=== PATIENT | female | born 1995 | race Caucasian/White ===

== ENCOUNTER 2020-12-01 15:43 | Outpatient (CLI) | payer OTHER, SELFPAY ==
[2020-12-01 16:31] LABS: Basophils Percent Auto 0.5 % (0.2-1.2); Eosinophils Absolute Auto 0.1 K/mm3 (0-0.3); Eosinophils Percent Auto 0.8 % (0-4.4); Hematocrit 39.3 % (37.0-47.0); Hemoglobin 13.4 g/dL (12.0-15.0); Immature Granulocyte Absolute 0.02 K/mm3 (0.00-0.031); Immature Granulocyte Percent A 0.3 % (0-0.5); Lymphocytes Absolute Auto 2.03 K/mm3 (0.9-3.2); Lymphocytes Percent Auto 27.8 % (18.3-44.2); Mean Corpuscular HGB Conc 34.1 g/dl (32-36); Mean Corpuscular Hemoglobin 29.6 pg (26-34); Mean Corpuscular Volume 86.9 fl (80-100); Mean Platelet Volume 10.7 fl (7.4-10.4); Neutrophils Absolute Auto 4.2 K/mm3 (1.3-6.7); Neutrophils Percent Auto 57.6 % (45.5-73.1); Platelet Count Result 265 k/mm3 (150-375); Red Blood Count 4.52 M/mm3 (4.2-5.4); Red Cell Distribution Width 13.2 % (11.5-14.5); White Blood Count 7.3 K/mm3 (4.5-10.0)
[2020-12-01 17:35] LABS: Vitamin D 25 Hydroxy 34.8 ng/mL
[2020-12-01 17:54] LABS: Hepatitis B Surface Antigen Negative (Negative)
[2020-12-01 18:05] LABS: Hepatitis C Virus Antibody Negative (Negative)
[2020-12-01 18:16] LABS: Rubella IgG Antibody > 120.0 IU/ML
[2020-12-01 18:17] LABS: Hepatitis B Surface Antigen 0.13 S/C
[2020-12-02 10:01] LABS: Rapid Plasma Reagin Non-Reactive (NonReactive)
[2020-12-11 18:28] LABS: CF Result NEGATIVE (NEGATIVE)
== END 2020-12-01 15:44 | disposition home or self-care (01) ==
LOC: ANHLAB 15:45
PROVIDERS: PCP Family Medicine; Visit Provider Obstetrics & Gynecology
DX: Z34.90 Encounter for supervision of normal pregnancy, unspecified, unspecified trimester (principal)
CPT/HCPCS: 36415; 81220; 82306; 85025; 86592; 86762; 86787; 86803; 86850; 86900; 86901; 87340

== ENCOUNTER 2020-12-04 15:31 | Outpatient (CLI) | payer OTHER, SELFPAY ==
[2020-12-04 16:31] LABS: Add Urine Microscopic? YES; Amorphous Sediment Urine Few; Appearance Urine Cloudy (Clear); Bacteria Urine Trace /hpf; Bilirubin Urine Negative (Negative); Blood Urine Negative (Negative); Color Urine Yellow (Yellow); Glucose Urine UA Negative (Negative); Ketones Urine Negative (Negative); Leukocyte Esterase Ur Negative LEU/UL (NEGATIVE); Mucus Urine Heavy /lpf; Nitrate Urine Negative (Negative); Protein Urine 1+ mg/dL (Negative); Specific Grav Ur 1.021 (1.001-1.035); Squamous Epithelial Cell Urine Occasional /hpf (Few); Urobilinogen Urine Negative mg/dL (<2.0)
[2020-12-04 21:06] LABS: HIV 1/2 Ab P24 Ag Result Negative (Negative)
[2020-12-08 10:40] LABS: Hemoglobin 13.1 g/dL (11.7-15.5); MCH 29.4 pg (27.0-33.0); MCV 89.9 fL (80.0-100.0); RDW 14.4 % (11.0-15.0); Red Blood Cell Count 4.45 Mill/uL (3.80-5.10)
== END 2020-12-04 15:32 | disposition home or self-care (01) ==
LOC: ANHLAB 15:34
PROVIDERS: PCP Family Medicine; Visit Provider Obstetrics & Gynecology
DX: Z34.90 Encounter for supervision of normal pregnancy, unspecified, unspecified trimester (principal)
CPT/HCPCS: 36415; 81001; 83021; 84443; 86703; 87086; G0432

== ENCOUNTER 2021-01-28 11:54 | Emergency (ER) | payer OTHER, SELFPAY ==
--- NOTE | 2021-01-28 12:00 | ED.URI ---
HPI - URI/Sore Throat General Chief Complaint: Upper Respiratory Infection Stated Complaint: sore throat Time Seen by Provider: 01/28/21 12:00 Source: patient and RN notes reviewed History of Present Illness HPI Narrative: Patient is a 25-year-old female who presents the urgent care with complaints of a sore throat at this morning. Patient has not taken anything [id number] for her symptoms. Patient is 18 weeks . States that her was positive for strep on January 23. Patient also works at the hospital. Denies of any nausea, vomiting, fever. No other acute complaints. No acute distress noted. Patient aware of the plan of care. Some parts of this dictation were generated by voice recognition software and may contain typographical and/or grammatical inaccuracies. Related Data Home Medications Medication Instructions Recorded Confirmed prenat.vits,farzad,[id number] 1 tablet PO DAILY 11/24/20 01/28/21 Allergies Allergy/AdvReac Type Severity Reaction Status Date / Time No Known Allergies Allergy Verified 12/31/20 15:07 Review of Systems Review of Systems: CONSTITUTIONAL: Denies fever, chills, or sweats. EYES: Denies visual changes, redness, or discharge. ENT: Denies rhinorrhea, congestion, otalgia. Reports of sore throat CARDIOVASCULAR: Denies chest pain, palpitations, or edema. RESPIRATORY: Denies cough or dyspnea. GASTROINTESTINAL: Denies abdominal pain, nausea, vomiting, or diarrhea. GENITOURINARY: Denies dysuria or hematuria. SKIN: Denies rash or itching. MUSCULOSKELETAL: Denies back pain, joint pain, or myalgia. NEUROLOGIC: Denies headache, numbness, or weakness. All other systems reviewed are negative, except as documented in HPI. [facility] Past Medical History Medical History (Updated 01/28/21 @ 12:30 by YUDI Bowles) Acid reflux Family History Family History Father Hypertension Family history of elevated blood lipids Mother Depression Social History Social History Smoking status: Never smoker Second hand tobacco smoke exposure: No Alcohol intake: never Comments At the time of my signature, I reviewed and agree with the nursing past medical, surgical, social, and family history. There is no relevant family history pertinent to the patient complaint. Exam Narrative: GENERAL: This is a well-nourished, well-developed patient, in no apparent distress. HEAD: normocephalic, atraumatic. EYES: PERRL. Sclera clear/white. Vision is grossly intact. EARS: External ears normal, auditory canals clear and without drainage, TMs normal without perforation. Hearing grossly intact. NOSE: External nose normal with no obvious nasal discharge, nares without redness, no rhinorrhea. THROAT: Mucous membranes moist, posterior pharynx clear. Mild postnasal drainage with exudate noted to the right NECK: Neck supple CARDIOVASCULAR: Regular rate and rhythm without murmurs, gallops, or rubs. RESPIRATORY: Clear to auscultation. Breath sounds equal bilaterally. No wheezes, rales, or rhonchi. SKIN: warm, intact with no suspicious lesions or rash, good texture and turgor. NEURO: awake, alert, and oriented to person, place and time. There were no obvious focal neurologic abnormalities. EXTREMITIES: No clubbing, cyanosis, or edema. Course Vital Signs Vital signs: Vital Signs Temperature 98.8 F 01/28/21 12:05 Pulse Rate 86 01/28/21 12:05 Respiratory Rate 16 01/28/21 12:05 Blood Pressure 122/74 01/28/21 12:05 Pulse Oximetry 100 01/28/21 12:05 Temperature 98.8 F 01/28/21 12:05 Pulse Rate 86 01/28/21 12:05 Respiratory Rate 16 01/28/21 12:05 Blood Pressure 122/74 01/28/21 12:05 Pulse Oximetry 100 01/28/21 12:05 Reviewed MDM - URI/Sore Throat MDM Narrative Medical decision making narrative: Reviewed lab results with the patient. She is aware
[2021-01-28 12:05] VITALS: BP 122/74; PULSE 86; RESP 16; TEMP 37.1; O2SAT 100
== END 2021-01-28 12:34 | disposition home or self-care (01) ==
PROVIDERS: Emergency Provider Nurse Practitioner Family; PCP Family Medicine
DX: J02.9 Acute pharyngitis, unspecified (principal)
CPT/HCPCS: 87081; 87880; 99213; G0463

== ENCOUNTER 2021-02-17 12:26 | Outpatient (CLI) | payer OTHER, SELFPAY ==
--- NOTE | ~2021-02-17 | US_ITS ---
EXAMINATION: US OB /maternal detail DATE: 02/17/2021 13:45 INDICATION: Encounter for survey screening TECHNIQUE: Multiple obstetric sonographic images performed. FINDINGS: Comparison ultrasound dated 12/01/2020 There is a single living fetus in breech presentation. The placenta is posterior without placenta pr evia. Amniotic fluid volume is subjectively normal. cardiac activity and movement is note d with a heart rate of 169 beats per minute. The following anatomy was identified as normal: 4 chamber heart 3 vessel cord cord insertion kidneys urinary bladder stomach spine diaphragm ventricles cisterna magna cerebellum The following biometric data were obtained: BPD: 46mm corresponds to gestational age 19 weeks 6 days. Head circumference: 172 mm corresponds to gestational age 19 weeks 6 days. Abdominal circumference: 147 mm corresponds to gestational age 20 weeks 0 days. Femur length: 31 mm corresponds to gestational age 19 weeks 4 days. Head circumference to abdominal circumference ratio: 1.17 (normal range for expected gestational age is 1.08-1.26). Estimated weight: 312 grams +/- 47 grams using Hadlock method, 6.1%. IMPRESSION: 1: Single living intrauterine with an estimated gestational age of 20weeks 3days by initial ultrasound measurements, with an EDC of 07/04/2021 in breech presentation. Estimated weight is 6.1% using Hadlock method. 2. Normal survey. Reviewed, dictated and finalized at location A. FLEET MAINTENANCE MANAGER IMPRESSION: 1: Single living intrauterine with an estimated gestational age of 20 weeks 3days by initial ultrasound measurements, with an EDC of 07/04/2021 in sharon ech presentation. Estimated weight is 6.1% using Hadlock method. 2. Normal survey.
== END 2021-02-17 12:27 | disposition home or self-care (01) ==
LOC: ANHIMG 12:30
PROVIDERS: PCP Family Medicine; Visit Provider Obstetrics & Gynecology
DX: Z34.92 Encounter for supervision of normal pregnancy, unspecified, second trimester (principal); Z3A.20 20 weeks gestation of pregnancy
CPT/HCPCS: 76805

== ENCOUNTER 2021-04-06 12:24 | Outpatient (RCR) | payer OTHER, SELFPAY ==
[2021-04-06 14:21] LABS: Basophils Percent Auto 0.4 % (0.2-1.2); Eosinophils Absolute Auto 0.1 K/mm3 (0-0.3); Eosinophils Percent Auto 1.6 % (0-4.4); Hematocrit 32.7 % (37.0-47.0); Hemoglobin 11.1 g/dL (12.0-15.0); Immature Granulocyte Absolute 0.08 K/mm3 (0.00-0.031); Lymphocytes Absolute Auto 1.87 K/mm3 (0.9-3.2); Lymphocytes Percent Auto 23.1 % (18.3-44.2); Mean Corpuscular HGB Conc 33.9 g/dl (32-36); Mean Corpuscular Hemoglobin 30.1 pg (26-34); Mean Corpuscular Volume 88.6 fl (80-100); Mean Platelet Volume 10.6 fl (7.4-10.4); Monocytes Absolute Auto 0.9 K/mm3 (0.1-0.6); Monocytes Percent Auto 10.6 % (2.6-8.5); Neutrophils Absolute Auto 5.1 K/mm3 (1.3-6.7); Neutrophils Percent Auto 63.3 % (45.5-73.1); Platelet Count Result 237 k/mm3 (150-375); Red Blood Count 3.69 M/mm3 (4.2-5.4); Red Cell Distribution Width 12.8 % (11.5-14.5); White Blood Count 8.1 K/mm3 (4.5-10.0)
[2021-04-06 14:27] LABS: Glucose 1 Hour PP 50gm Dose 97 mg/dL
[2021-04-07] MEDS: RHO(D) IMMUNE GLOBULIN 300 MCG/2 ML SYRINGE IM (15:05)
== END 2021-07-05 23:59 | disposition home or self-care (01) ==
LOC: ANHLAB 12:24
PROVIDERS: PCP Family Medicine; Visit Provider Obstetrics & Gynecology
DX: Z34.90 Encounter for supervision of normal pregnancy, unspecified, unspecified trimester (principal); Z29.13 Encounter for prophylactic Rho(D) immune globulin; Z3A.00 Weeks of gestation of pregnancy not specified
CPT/HCPCS: 36415; 82947; 85025; 85461; 90384; 96372; J2790

== ENCOUNTER 2021-04-21 12:18 | Outpatient (RCR) | payer OTHER, SELFPAY ==
--- NOTE | ~2021-04-21 | US_ITS ---
EXAMINATION: US OB limited DATE: 04/21/2021 13:46 INDICATION: Pericardial effusion. TECHNIQUE: Real-time ultrasound of the pelvis was performed. COMPARISON: Ultrasound 02/17/2021 FINDINGS: There is a single fetus in vertex presentation. The placenta is fundal. heart rate is 136 beat s per minute (bpm). The amniotic fluid index is 15.4 cm, which is normal. The four-chamber heart view is normal. No pericardial effusion. IMPRESSION: 1. Single living fetus in vertex presentation. 2. No pericardial effusion. Reviewed, dictated and finalized at location A. [employer]TER
[2021-04-21 14:20] LABS: Free T4 Free Thyroxine 0.86 ng/mL (0.78-2.19)
[2021-04-27 12:01] LABS: SS-A <1.0; SS-B <1.0
== END 2021-07-13 08:51 | disposition home or self-care (01) ==
LOC: ANHOBOP 12:18
PROVIDERS: PCP Family Medicine; Visit Provider Obstetrics & Gynecology
DX: O36.8390 Maternal care for abnormalities of the fetal heart rate or rhythm, unspecified trimester, not applicable or unspecified (principal); Z3A.00 Weeks of gestation of pregnancy not specified
CPT/HCPCS: 36415; 76815; 84439; 84443; 86038; 86235

== ENCOUNTER 2021-05-18 08:53 | Outpatient (CLI) | payer OTHER, SELFPAY ==
[2021-05-18 10:01] LABS: HIV 1/2 Ab P24 Ag Result Negative (Negative)
[2021-05-18 13:45] LABS: Basophils Percent Auto 0.4 % (0.2-1.2); Eosinophils Absolute Auto 0.1 K/mm3 (0-0.3); Eosinophils Percent Auto 1.6 % (0-4.4); Hemoglobin 9.7 g/dL (12.0-15.0); Immature Granulocyte Absolute 0.09 K/mm3 (0.00-0.031); Immature Granulocyte Percent A 1.2 % (0-0.5); Lymphocytes Absolute Auto 1.87 K/mm3 (0.9-3.2); Lymphocytes Percent Auto 24.3 % (18.3-44.2); Mean Corpuscular HGB Conc 31.3 g/dl (32-36); Mean Corpuscular Hemoglobin 28.4 pg (26-34); Mean Corpuscular Volume 90.6 fl (80-100); Mean Platelet Volume 11.1 fl (7.4-10.4); Monocytes Absolute Auto 0.9 K/mm3 (0.1-0.6); Monocytes Percent Auto 12.1 % (2.6-8.5); Neutrophils Absolute Auto 4.7 K/mm3 (1.3-6.7); Neutrophils Percent Auto 60.4 % (45.5-73.1); Platelet Count Result 253 k/mm3 (150-375); Red Blood Count 3.42 M/mm3 (4.2-5.4); Red Cell Distribution Width 12.6 % (11.5-14.5); White Blood Count 7.7 K/mm3 (4.5-10.0)
[2021-05-19 08:52] LABS: Rapid Plasma Reagin Non-Reactive (NonReactive)
== END 2021-05-18 08:54 | disposition home or self-care (01) ==
PROVIDERS: PCP Family Medicine; Visit Provider Student in an Organized Health Care Education/Training Program
DX: Z36.89 Encounter for other specified antenatal screening (principal); Z3A.32 32 weeks gestation of pregnancy
CPT/HCPCS: 36415; 85025; 86592; 86703; G0432

== ENCOUNTER 2021-07-06 15:53 | Inpatient (IN) | payer OTHER, SELFPAY ==
[2021-07-06] VITALS (38 sets, daily range): BP systolic 104–138; BP diastolic 57–96; PULSE 67–104; TEMP 36.1–36.2; O2SAT 98–100; BMI 30.4
--- NOTE | 2021-07-06 16:47 | LDADM ---
This patient, Lyn Tejada, was admitted to Labor/Delivery/Recovery 109 on 07/06/21 at 15:53. Plans for labor, pain management and were discussed with patient. Patient/family oriented to hospital policies and general routines including ID bracelet, bed and alarms, visiting hours, pain management, procedures, bathroom and other care routines, personal items, smoking policy, room service/diet and guest tray routines, infant security routines, and visiting hours. Patient/Family are encouraged to report perceived risks to care and to ask questions if they do not understand what they are told or what they should do. See OBIX for further documentation.
[2021-07-06 17:07] LABS: Basophils Absolute Auto 0.1 K/mm3 (0.0-0.1); Basophils Percent Auto 0.5 % (0.2-1.2); Eosinophils Absolute Auto 0.1 K/mm3 (0-0.3); Eosinophils Percent Auto 1.3 % (0-4.4); Hematocrit 36.5 % (37.0-47.0); Immature Granulocyte Absolute 0.14 K/mm3 (0.00-0.031); Immature Granulocyte Percent A 1.5 % (0-0.5); Lymphocytes Absolute Auto 2.46 K/mm3 (0.9-3.2); Lymphocytes Percent Auto 26.3 % (18.3-44.2); Mean Corpuscular HGB Conc 32.9 g/dl (32-36); Mean Corpuscular Volume 88.2 fl (80-100); Mean Platelet Volume 11.9 fl (7.4-10.4); Monocytes Absolute Auto 0.8 K/mm3 (0.1-0.6); Neutrophils Absolute Auto 5.7 K/mm3 (1.3-6.7); Neutrophils Percent Auto 61.4 % (45.5-73.1); Platelet Count Result 255 k/mm3 (150-375); Red Blood Count 4.14 M/mm3 (4.2-5.4); Red Cell Distribution Width 16.2 % (11.5-14.5); White Blood Count 9.3 K/mm3 (4.5-10.0)
[2021-07-06] MEDS: DINOPROSTONE 10 MG VAG INSERT VAGINAL (17:23)
--- NOTE | 2021-07-06 17:47 | WPDANESEPP ---
Anes - Eval Pre Procedure Procedure: labor epidural Date/Time: 07/06/21 17:47 Surgeon: adelfo Preop Diagnosis: pain during labor Pre Op Diagnosis: IOL Patient Data Age: 25 Gender: F Height: 1.6 m Weight: 78 kg Last Vital Signs Pulse 93 07/06/21 17:30 BP 128/74 07/06/21 17:30 Allergies Allergy/AdvReac Type Severity Reaction Status Date / Time No Known Allergies Allergy Verified 07/06/21 16:34 Home Medications Medication Instructions Recorded Confirmed Type prenat.vits,farzad,[id number] 1 tablet PO DAILY 11/24/20 07/06/21 History ferrous sulfate 325 mg (65 mg 325 mg PO DAILY #90 tablet 05/19/21 07/06/21 Rx iron) tablet Unisom (diphenhydramine) 12.5 mg PO DAILY 07/06/21 07/06/21 History Laboratory Tests 07/06/21 07/06/21 16:55 16:55 WBC 9.3 K/mm3 K/mm3 (4.5-10.0) RBC 4.14 M/mm3 L M/mm3 (4.2-5.4) Hgb 12.0 g/dL g/dL (12.0-15.0) Hct 36.5 % L % (37.0-47.0) MCV 88.2 fl fl (80-100) MCH 29.0 pg pg (26-34) MCHC 32.9 g/dl g/dl (32-36) RDW 16.2 % H % (11.5-14.5) Plt Count 255 k/mm3 k/mm3 (150-375) MPV 11.9 fl H fl (7.4-10.4) Immature Gran % (Auto) 1.5 % H % (0-0.5) Neut % (Auto) 61.4 % % (45.5-73.1) Lymph % (Auto) 26.3 % % (18.3-44.2) [place] % (Auto) 9.0 % H % (2.6-8.5) Eos % (Auto) 1.3 % % (0-4.4) Baso % (Auto) 0.5 % % (0.2-1.2) Lymph # (Auto) 2.46 K/mm3 K/mm3 (0.9-3.2) [place] # (Auto) 0.8 K/mm3 H K/mm3 (0.1-0.6) Eos # (Auto) 0.1 K/mm3 K/mm3 (0-0.3) Baso # (Auto) 0.1 K/mm3 K/mm3 (0.0-0.1) Abs Immat Gran (auto) 0.14 K/mm3 H K/mm3 (0.00-0.031) Absolute Neuts (auto) 5.7 K/mm3 K/mm3 (1.3-6.7) Absolute Nucleated RBC 0.0 K/mm3 K/mm3 (0.0-0.012) Nucleated RBC % 0.0 % % (0.0-0.2) RPR Pending Patient hx anesthesia problems: none Family hx anesthesia problems: none Results Review: All pre-operative results and documents have been reviewed as part of the pre-operative evaluation. [facility] Past Medical History Medical History Acid reflux Family History Family History Father Family history of elevated blood lipids Hypertension Mother Depression Hypertension Social History Social History Smoking status: Never smoker Second hand tobacco smoke exposure: No Alcohol intake: never Substance use: never Spiritual care concerns: No Exam Day of Procedure 07/06/21 17:47
[2021-07-06] MEDS: fentaNYL CITRATE INJ (*CRX) 100 MCG/2 ML VIAL 50 MCG IV PUSH ×2 (20:37→21:38)
[2021-07-06] MEDS: ONDANSETRON INJ 4 MG/2 ML VIAL IV PUSH (22:02)
[2021-07-06] MEDS: LACTATED RINGERS 1,000 ML 125 ML IV CONT ×2 (22:04→23:32)
[2021-07-07] VITALS (95 sets, daily range): BP systolic 94–143; BP diastolic 52–103; PULSE 69–195; RESP 16–18; TEMP 36.3–37; O2SAT 97–100
[2021-07-07] MEDS: OXYTOCIN 30 UNITS/NS 500 ML 30 UNITS/500 ML BAG IV CONT (00:25)
[2021-07-07] MEDS: CALCIUM CARBONATE (TUMS) 500 MG (200 MG ELEMENTAL) PO (00:31)
[2021-07-07] MEDS: LACTATED RINGERS 1,000 ML 125 ML IV CONT (02:02)
[2021-07-07] MEDS: LIDOCAINE HCL 1% LOCAL INJ 10 ML VIAL 20 ML (05:30)
[2021-07-07] MEDS: OXYTOCIN 30 UNITS/NS 500 ML 30 UNITS/500 ML BAG 125 UNITS IV CONT (05:52)
[2021-07-07 07:32] LABS: Rapid Plasma Reagin Non-Reactive (NonReactive)
[2021-07-07] MEDS: WITCH HAZEL 40 PADS 1 PAD TOPICAL (07:56)
[2021-07-07] MEDS: IBUPROFEN 600 MG TABLET PO ×2 (07:56→16:02)
[2021-07-07] MEDS: BENZOCAINE 20% AER SPR (*SP) 56 GM CAN 1 SPRAY TOPICAL (07:56)
--- NOTE | 2021-07-07 08:39 | PM.IMHP ---
H&P: HPI History of Present Illness Date/Time: 07/07/21 08:39 Patient admitted for [facility] for post dates. She is at 40 5/7 weeks by LMP 09/24/21 with an EDC of 07/01/2021 consistent with a 9 week ultrasound. PNC significant for episode of arrhythmia which was present for about six weeks. She had neg antiRo antiLa testing. She had MFM consultation and had normal surveillance testing. The tracing showed an occasional PAC. No pericardial effusion observed. Labs reviewed. GBS neg. Chief Complaint: Medical induction of labor. Review of Systems Review of Systems: All systems reviewed & are unremarkable except as noted in HPI and below Constitutional: Constitutional: Reports no additional constitutional complaints and Denies headache(s) Eyes: Eyes: Denies spots in vision ENT: Reports system reviewed and no additional complaints, except as documented and Denies headache(s) Cardiovascular: Cardiovascular: Denies chest pain and Denies dyspnea Respiratory: Respiratory: Denies dyspnea Gastrointestinal: Gastrointestinal: Reports no additional gastrointestinal complaints Genitourinary: Genitourinary: Reports amenorrhea Musculoskeletal: Musculoskeletal: Reports no additional musculoskeletal complaints Integumentary/Breasts: Skin/Breast: Denies breast mass and Denies rash Neurologic: Denies headache(s) Psychiatric: Psychiatric: Reports no additional psychiatric complaints [facility] Past Medical History Medical History (Updated 07/07/21 @ 21:19 by Clayton Wilkinson MD) Acid reflux Family History Family History Father Family history of elevated blood lipids Hypertension Mother Depression Hypertension Social History Social History Smoking status: Never smoker Second hand tobacco smoke exposure: No Alcohol intake: never Substance use: never Spiritual care concerns: No Meds Home Medications and Allergies Home Medications Medication Instructions Recorded Confirmed Type prenat.vits,farzad,[id number] 1 tablet PO DAILY 11/24/20 07/06/21 History ferrous sulfate 325 mg (65 mg 325 mg PO DAILY #90 tablet 05/19/21 07/06/21 Rx iron) tablet Unisom (diphenhydramine) 12.5 mg PO DAILY 07/06/21 07/06/21 History Allergies Allergy/AdvReac Type Severity Reaction Status Date / Time No Known Allergies Allergy Verified 07/06/21 16:34 Vital Signs Vital Signs - 24 hr 07/06/21 16:28 07/06/21 17:26 07/06/21 17:30 Temperature 97.1 F L Pulse Rate 96 93 Blood Pressure 126/76 128/74 Pulse Oximetry 07/06/21 18:00 07/06/21 18:30 07/06/21 19:00 Temperature Pulse Rate 86 81 77 Blood Pressure 133/78 134/78 134/84 Pulse Oximetry 07/06/21 20:00 07/06/21 20:30 07/06/21 21:00 Temperature Pulse Rate 92 87 78 Blood Pressure 126/79 132/66 104/57 L Pulse Oximetry 07/06/21 21:30 07/06/21 22:00 07/06/21 22:30 Temperature Pulse Rate 92 82 77 Blood Pressure 119/70 119/65 138/75 Pulse Oximetry 07/06/21 22:36 07/06/21 22:39 07/06/21 22:40 Temperature Pulse Rate 93 93 Blood Pressure 119/96 H 115/71 Pulse Oximetry 99 07/06/21 22:41 07/06/21 22:42 07/06/21 22:44 Temperature Pulse Rate 88 84 Blood Pressure 120/68 118/69 Pulse Oximetry 100 07/06/21 22:45 07/06/21 22:46 07/06/21 22:48 Temperature Pulse Rate 90 73 Blood Pressure 114/64 135/62 Pulse Oximetry 100 07/06/21 22:50 07/06/21 22:52 07/06/21 22:55 Temperature Pulse Rate 103 H 101 H Blood Pressure 126/74 126/71 Pulse Oximetry 100 100 07/06/21 22:57 07/06/21 23:00 07/06/21 23:05 Temperature Pulse Rate 84 77 Blood Pressure 132/70 127/74 Pulse Oximetry 100 100 07/06/21 23:10 07/06/21 23:15 07/06/21 23:18 Temperature 97 F L Pulse Rate 67 Blood Pressure 130/76 Pulse Oximetry 99 99 07/06/21 23:20 07/06/21 23:25 07/06/21
--- NOTE | 2021-07-07 08:40 | PM.OBPRVD ---
OB - Delivery Note Procedure Delivery date: 07/07/21 Procedure: Spontaneous vaginal delivery. Events: Other (Episodic arrhythmia.) Induction method: Per Misoprostol Protocol Delivery augmentation: Pitocin Delivery monitor: External FHT Route of delivery: Laceration Description: Perineal - 2nd Degree and Vaginal (Bilateral sulcus vaginal tears) Delivery repair: vicryl (3.0 vicryl) Specimen: No Quantitative Blood Loss (ml): 400 Anesthesia type: Epidural Disposition: Floor Complications: Mild shoulder dystocia lasting 36 seconds. Narrative: Patient admitted on the evening of 07/24/2021 for medical induction of labor for postdates with cervidil. She started tremayne and progressed into active labor. The cervidil was removed after two hours due to her progressing into active labor. She continued to progress into active labor. She had SROM clear. She progressed to 9 cm and then needed augmentation. After delivery of the head, she had a laceration. Gentle downward traction of head performed and the anterior shoulder did not move under the pubic bone. The legs were placed in modified McRobert's and suprapubic pressure applied and the anterior shoulder was delivered. Nose and mouth suctioned with bulb. The rest of infant delivered and placed on maternal abdomen and the cord was doubly clamped and cut. Terminal meconium noted. The was taken to warmer by nursery nurse. Cord gases and cord blood obtained. The placenta delivered spontaneously and intact. The laceration was examined. The bilateral vaginal sulci tears were repaired with 3.0 vicryl. The second degree perinneal laceration repaired with 3.0 vicryl in figure of eight and running suture. The superfiscial layer approximated with single sutures of 3.0 vicryl. Hemostasis noted. Sponge count correct. Baby Date of : 07/07/21 Time of : 05:17 Weeks of gestation at delivery: 40 Infant gender: Male Weight (pounds): 8 Weight (ounces): 0 presentation: vertex position: Right Occiput Anterior Placenta delivery description: Spontaneous Cord Vessel Description: 3 Vessels and Clamped/Cut score one minute: 8 score five minutes: 9
--- NOTE | 2021-07-07 09:18 | OBPPTRN ---
Patient transferred to post room # 287 via wheelchair. Support person present. Oriented to unit, room, information board, rooming in, admission packet and security measures. Patient verbalizes understanding.
[2021-07-07] MEDS: DOCUSATE SODIUM 100 MG CAPSULE PO ×2 (11:18→16:02)
[2021-07-07] MEDS: ACETAMINOPHEN 325 MG TABLET 650 MG PO ×2 (11:18→22:19)
--- NOTE | 2021-07-07 15:22 | PC.NURSE ---
0945 - Introductions were made, then consulted with patient to assess needs related to . Mother led the conversation with her experience feeding her infant so far. Mother works well with her with encouragement and education. Encouraged understanding of the benefits of skin to skin (unwrapping infant and placing vertically on her chest), responsive feeding and how to watch for early feeding signs, frequency of feeding on demand about every 8-12 times in 24 hours (every 2-3 hours), milk production, duration of feeding, signs of adequate intake/output and how to record on the feeding sheet. 1000 - Mother hand expressed colostrum and finger fed to a sleepy/ reluctant infant. 1020 - With an unconventional laid-back cross cradle position infant self attached with effective . Education given to mother of how to visualize suck/swallow ratios and drinking at the breast. Infant was able to maintain latch without discomfort to mother. Nipple care reviewed with optimal latch and good positioning. Reminding mother of comfort measures of healing with a warm and wet washcloth to rinse breast, then leave open to air-dry as needed. Reviewed good handwashing when or touching the breast/nipples to prevent infection. Resources used to facilitate learning were used with the mom and baby guide. Mother voiced understanding of responsive feedings, stimulating with skin to skin, hand expressed colostrum, touch, talking to infant to encourage if it has been 2 -3 hours since the start of the last , to call if does not latch or there is discomfort with . Reported to the primary RN.
[2021-07-08] MEDS: IBUPROFEN 600 MG TABLET PO ×3 (00:52→22:21)
[2021-07-08] MEDS: ACETAMINOPHEN 325 MG TABLET 650 MG PO (05:05)
[2021-07-08 05:53] LABS: Hemoglobin 7.4 g/dL (12.0-15.0)
[2021-07-08 08:55] VITALS: BP 125/78; PULSE 89; RESP 18; TEMP 36.6; O2SAT 100
[2021-07-08] MEDS: POLYSACCHARIDE IRON COMPLEX 150 MG CAPSULE PO ×2 (09:39→17:21)
[2021-07-08] MEDS: DOCUSATE SODIUM 100 MG CAPSULE PO ×2 (09:39→17:21)
[2021-07-08] MEDS: HYDROcodone/acetaminophen (*CRX) 5-325 MG TABLET 1 TAB (09:40)
[2021-07-08] MEDS: MULTIVIT/MIN/PREN/FOL AC/IRON TABLET 1 TAB PO (09:42)
[2021-07-08] MEDS: RHO(D) IMMUNE GLOBULIN 300 MCG/2 ML SYRINGE IM (10:55)
--- NOTE | 2021-07-08 12:50 | WPDANLDPN2 ---
Anes-Prog Note L&D Date/Time: 07/08/21 12:50 Comfortable throughout: labor and delivery Neuraxial method: epidural Epidural/Spinal procedure site: clean & non-tender Neuro status: Neuro function grossly intact. Cardiovascular status: normal Respiratory status: normal Airway patency: baseline Mental status: baseline Post-Op hydration status: normal Vital Signs: Last Vital Signs Temp 97.8 F 07/08/21 08:55 Pulse 89 07/08/21 08:55 Resp 18 07/08/21 08:55 BP 125/78 07/08/21 08:55 Pulse Ox 100 07/08/21 08:55 Pain score (VAS): 03/16 I/O: Intake & Output 07/07/21 07/08/21 07/08/21 23:59 07:59 15:59 Intake Total 500 Balance 500 Post-procedural complaints: none Patient feedback: Patient satisfied with anesthetic care.
--- NOTE | 2021-07-08 16:19 | PC.NURSE ---
[id number] Mother led the conversation with her experience and plan to feed her so far and her ability to latch infant optimally without discomfort. Mother is feeding appropriately for growth of and understands stimulating to eat if needed. Infant has had appropriate feedings in the last 24 hours meets the outcomes for weight, output and jaundice at this time. Mother states she is confident to continue her at home or when to call for assistance and denies any additional assistance or education at this time. Reinforced understanding of milk production, transition of milk, signs of adequate intake, prevention/relief of engorgement, responsive after visualizing feeding cues, the different methods of stimulating infant to breastfeed 2-3 hours after the start of the last feeding, community resources, medication information reviewed per [employer] and when to call a provider using the resource of the mom and baby guide/[facility] website. Mother latched infant optimally to the right breast. Mother voiced understanding of visualizing appropriate suck/swallow ratios. Mother voiced understanding of the education shared. Reported to the primary RN. 1515 - Mother will be staying with us another night to continue her recovery and practice caring for her infant. Answered questions regarding pumping in the weeks to come after going home and correct flange fit. Will assess mother tomorrow.
--- NOTE | 2021-07-08 16:33 | P.PNOB_ITS ---
OB - PN: Subj Subjective Date/time seen: 07/08/21 16:33 Pain is controlled some with Motrin Tylenol. Sounds like she could be better. Has ambulated since post delivery and did well. No lightheadedess or dizziness on floor. No hypovolemic symptoms. Patient comments: pain well controlled, tolerating diet and other (Decreasing lochia.) baby status: doing well and nursing well [place] feeding status: exclusively breast feeding OB - PN: Obj Data Labs CBC & Chem 7: 07/08/21 04:59 Labs: Laboratory Results - last 24 hr 07/08/21 07/08/21 04:59 04:59 Hgb 7.4 L D Hct 23.0 L Blood Type O Negative Antibody Screen Negative Screen Negative Baby's Blood Type A pos Baby's FLORES Negative Doses of RhIg Required 1 OB - PN A/P Plan day: 1 Plan: routine care Comments: Patient doing well. She had [place] ordered. anemia. Asymptomatic. Continue iron therapy. Routine care. Time Spent With Patient Time: Total time spent is greater than 50% in coordination of care (as documented) at patient's floor/unit and/or counseling patient: Exam Psych: Affect: normal affect Other: Abd: fundus firm below umbilicus, nontender Perineum: healing Ext: nontender
[2021-07-08] MEDS: HYDROcodone/acetaminophen (*CRX) 5-325 MG TABLET 1 TAB PO (17:22)
[2021-07-08 18:54] VITALS: BP 113/69; PULSE 103; RESP 16; TEMP 36.9
[2021-07-09] MEDS: IBUPROFEN 600 MG TABLET PO (05:05)
[2021-07-09 07:40] VITALS: BP 127/80; PULSE 88; RESP 18; TEMP 36.6; O2SAT 99
[2021-07-09] MEDS: HYDROcodone/acetaminophen (*CRX) 5-325 MG TABLET 1 TAB PO (10:13)
[2021-07-09] MEDS: DOCUSATE SODIUM 100 MG CAPSULE PO (10:13)
[2021-07-09] MEDS: POLYSACCHARIDE IRON COMPLEX 150 MG CAPSULE PO (10:13)
--- NOTE | 2021-07-09 10:19 | PM.OBDSVD ---
DS: Admitting Diagnosis Discharge Date 07/09/2021 Admitting Diagnosis Medical induction of labor DS: Discharge Diagnosis Discharge Diagnosis (1) Encounter for induction of labor: Code(s): Z34.90 - Encounter for supervision of normal , unspecified, unspecified trimester Status: Acute (2) Delivery normal: Code(s): O80 - Encounter for full-term uncomplicated delivery Status: Acute OB - DS: Summary Hospital Course Hospital Course: Patient was admitted for [facility] for post dates. She had cytotec placed. She progressed into labor within 2 hours of placement of cervidil which was then removed. She did received Pitocin augmentation when she was 9cm. She had a vaginal delivery complicated by mild shoulder dystocia. she did well. She had asymptomatic anemia with an H/H 7.4/. She was started on iron therapy. She had adequate pain control with oral medication. She was ambulating well. She was discharged to home on day 2. Discharge precautions discussed. OB Procedures : NST and Ultrasound OB Procedures Intrapartum: Spontaneous Vag Delivery OB Procedures: : None Peripartum Data Delivery Method: Natural Vaginal Laceration Description: Perineal - 2nd Degree complications: none Status at Discharge Functional status at discharge: independent ambulation Time Spent with Patient Time attestation: Total time spent providing and/or coordinating discharge services: Exam Const: General: cooperative Orientation/consciousness: oriented to person, oriented to place and oriented to time HENMT: General nose exam: Normal external nose present Eyes: General: appearance normal, both eyes and all related structures Resp: Effort & Inspection: normal respiratory effort GI: Inspection: normal to inspection : External Female Exam: normal external appearance Other: perineum healing Neuro: General: oriented to person, oriented to place and oriented to time Extrem: General: normal to inspection and no calf tenderness Psych: Appearance: grossly normal Mental Status: mental status grossly normal Discharge Plan Discharge Attending physician on discharge: Clayton Wilkinson Consulting providers: Yunior Perez ; Cristina Vasquez Discharging Clinician: Clayton Wilkinson Anticipated Discharge Date/Time: 07/09/21 10:08 Patient Disposition: Home, Self-Care Activity: may shower, no straining and pelvic rest Diet: regular Discharge Instructions: Pelvic rest for 6 weeks. May take over the counter Ibuprofen or Tylenol for pain. Call if saturating more than a pad an hour, leg redness, pain and swelling, temperature>100.4. No strenuous activity. Take Miralax daily while taking [place]. Education: Mom and Baby Guide Given to: Mother Follow-Up: Call your delivering provider's office for an appointment to be seen in: 2 Weeks Mom and baby should come to the [facility] for the follow-up appointment. Appointment Date/Time: July 10, 2021 at 10:00 am What to expect at your follow-up visit: Physical Assessment Call [phone] if you are unable to keep your appointment time. BREAST CARE: * Wear a snug supportive bra. * For engorgement discomfort: Breast Feeding: * Apply warm moist washcloths * Express milk as needed to relieve engorgement * Wear loose clothing * For sore nipples: * Identify correct latch-on * Apply warm moist washcloths before and after nursing * Air dry nipples after nursing * May apply Lansinoh cream to nipples PERINEAL CARE: * Until bleeding stops, use your desmond bottle after urinating * Change your pad frequently throughout the day * You may take sitz baths several times a day (fill your bathtub with warm water and soak for 20 minutes.) Do NOT bathe in the water * No tub baths until seen by your physician - You may shower ACTIVITY: * Res
--- NOTE | 2021-07-09 13:45 | PC.NURSE ---
[id number] Mother led the conversation with her experience and plan to feed her so far and her ability to independently latch optimally without discomfort. Mother began using a nipple shield last night to assist latching infant to the left breast. Discussed risks and benefits of using a nipple shield. Reminded parents to use good handwashing technique to prevent infection. Mother is feeding appropriately for growth of infant and understands stimulating infant to eat if needed. has had appropriate feedings in the last 24 hours meets the outcomes for weight, output and jaundice at this time. Mother states she is confident to continue effectively , pumping left breast for stimulation if continued nipple shield use, and supplementing at night with her at home. Reinforced understanding of milk production, transition of milk, signs of adequate intake, prevention/relief of engorgement, responsive after visualizing feeding cues, the different methods of stimulating to breastfeed 2-3 hours after the start of the last feeding, community resources, medication information reviewed per [facility] and when to call a provider using the resource of the mom and baby guide/[facility] website. Mother voiced understanding of the education shared. Reported to the primary RN.
[2021-07-10 10:26] VITALS: BP 123/70; PULSE 92; RESP 20; TEMP 37.1; O2SAT 100
== END 2021-07-09 12:35 | disposition home or self-care (01) | DRG 807 ==
LOC: ANHLDR 15:58 → ANHOB2 07-07 09:44
PROVIDERS: Admitting Provider Obstetrics & Gynecology; PCP Family Medicine; Visit Provider Obstetrics & Gynecology
DX: O48.0 Post-term pregnancy (principal); Z37.0 Single live birth; Z3A.40 40 weeks gestation of pregnancy; O70.1 Second degree perineal laceration during delivery; O66.0 Obstructed labor due to shoulder dystocia; O77.0 Labor and delivery complicated by meconium in amniotic fluid
CPT/HCPCS: 36415; 85014; 85018; 85025; 85461; 86592; 86850; 86900; 86901; 90384; A9270; J2405; J2590; J2790; J2795; J3010; J7120

== ENCOUNTER 2021-09-28 09:42 | Outpatient (CLI) | payer OTHER, SELFPAY ==
[2021-09-28 10:10] LABS: Hematocrit 39.6 % (37.0-47.0); Hemoglobin 12.5 g/dL (12.0-15.0)
== END 2021-09-28 09:43 | disposition home or self-care (01) ==
LOC: ANHLAB 09:45
PROVIDERS: PCP Family Medicine; Visit Provider Obstetrics & Gynecology
DX: D64.9 Anemia, unspecified (principal)
CPT/HCPCS: 36415; 85014; 85018

== ENCOUNTER 2022-01-02 08:02 | Emergency (ER) | payer OTHER, SELFPAY ==
[2022-01-02 08:08] VITALS: BP 116/64; PULSE 85; RESP 16; TEMP 36.8; O2SAT 100
--- NOTE | 2022-01-02 08:14 | ED.EYEPROB ---
HPI - Eye Problem General Chief complaint: Eye Problems Stated complaint: Eye Problem Time Seen by Provider: 01/02/22 08:14 Source: patient, RN notes reviewed and old records reviewed Mode of arrival: ambulatory Limitations: no limitations History of Present Illness HPI Narrative: 26-year-old female presents to [facility] with complaints of right eye itching and irritation with some crusty drainage noted from her right eye today. Patient states she had fake eyelashes applied yesterday and she took them off in about 2 hours later because they were irritating her eye. Patient denies any change in vision or any sharp eye pain. Patient has noted redness to the sclera and conjunctiva of the right eye. MD chief complaint: eye redness Onset (ago): day(s) (Since yesterday afternoon) Severity scale (1-10): 1 Treatments Prior to Arrival: other (Warm compress) Related Data Allergies Allergy/AdvReac Type Severity Reaction Status Date / Time No Known Allergies Allergy Verified 01/02/22 08:19 Review of Systems Review of Systems: CONSTITUTIONAL: Denies fever, chills, or sweats. EYES: Denies visual changes. Reports redness,, irritation, discharge from right eye. ENT: Denies rhinorrhea, congestion, sore throat, or otalgia. CARDIOVASCULAR: Denies chest pain, palpitations, or edema. RESPIRATORY: Denies cough or dyspnea. SKIN: Denies rash or itching. NEUROLOGIC: Denies headache All systems reviewed & are unremarkable except as noted in HPI and below PMFSH Past Medical History Medical History Acid reflux Vaginal delivery Family History Family History Father Family history of elevated blood lipids Hypertension Mother Depression Hypertension Social History Social History Smoking status: Never smoker Second hand tobacco smoke exposure: No Alcohol intake: never Substance use: never Spiritual care concerns: No Comments At time of signature, agree with nursing past medical, surgical, social and family history. There is no relevant family history pertinent to the presenting complaint Exam Narrative: GENERAL: Well-appearing, well-nourished, and in no acute distress. HEAD: Normocephalic, atraumatic. EYES: PERRLA and EOMI. Upper and lower eyelids unremarkable. No periorbital cellulitis noted. Sclera and conjunctivae injected no noted drainage at this time, denies any sharp pain to right eye ENT: Nares clear, no rhinorrhea or epistaxis. Mucous membranes moist. NECK: Supple. No lymphadenopathy CHEST: Clear to auscultation. No respiratory distress. SaO2 100% on room air HEART: Regular rate and rhythm. No murmur heard. Normal peripheral pulses. SKIN: Warm, dry, no rash. NEURO: No focal deficits. Alert and oriented x3. Course Course Emergency Course: Patient is aware of diagnosis, understands and agrees to treatment plan. Anticipatory guidance given. Patient agrees to follow-up as directed and is aware of reasons to seek care at the emergency department. Portions of this record may have been created with voice recognition software Level of Care: Express Care Visit Vital Signs Vital signs: Vital Signs Temperature 36.8 C 01/02/22 08:08 Pulse Rate 85 01/02/22 08:08 Respiratory Rate 16 01/02/22 08:08 Blood Pressure 116/64 01/02/22 08:08 Pulse Oximetry 100 01/02/22 08:08 Oxygen Delivery Room Air 01/02/22 08:08 Temperature 36.8 C 01/02/22 08:08 Pulse Rate 85 01/02/22 08:08 Respiratory Rate 16 01/02/22 08:08 Blood Pressure 116/64 01/02/22 08:08 Pulse Oximetry 100 01/02/22 08:08 Oxygen Delivery Room Air 01/02/22 08:08 Reviewed MDM - Eye Problem MDM Narrative Medical decision making narrative: Consideration of the following conditions may be warranted for the presenting problem, they are not final diagnoses:
== END 2022-01-02 08:30 | disposition home or self-care (01) ==
PROVIDERS: Emergency Provider Registered Nurse; PCP Family Medicine
DX: H10.9 Unspecified conjunctivitis (principal)
CPT/HCPCS: 99213; G0463

== ENCOUNTER 2022-05-07 08:38 | Outpatient (CLI) | payer OTHER, SELFPAY ==
[2022-05-07 10:00] LABS: Cholesterol 158 mg/dL (0-200); HDL Direct 52 mg/dL; Triglycerides 62 mg/dL (<150)
[2022-05-07 10:11] LABS: Beta HCG Quantitative < 2.39 mIU/ML
[2022-05-07 11:15] LABS: LDL Cholesterol Direct 73 mg/dL
[2022-05-07 11:36] LABS: Hemoglobin A1C 5.2 % (<5.7)
[2022-05-10 15:10] LABS: FSH 1.7 mIU/mL (***); LH 1.3 mIU/mL (***); Progesterone 8.7 ng/mL (***); Prolactin 12.6 ng/mL (***)
== END 2022-05-07 08:39 | disposition home or self-care (01) ==
LOC: ANHLAB 08:41
PROVIDERS: PCP Family Medicine; Visit Provider Obstetrics & Gynecology
DX: N92.3 Ovulation bleeding (principal)
CPT/HCPCS: 36415; 80061; 83001; 83002; 83036; 84144; 84146; 84443; 84702

== ENCOUNTER 2022-05-12 16:30 | Outpatient (CLI) | payer OTHER, SELFPAY ==
--- NOTE | ~2022-05-12 | US_ITS ---
Pelvic ultrasound. Clinical History: Ovulation bleeding Technique: Realtime transabdominal and transvaginal scanning of the pelvis was performed. Color flow Doppler and Doppler spectral analysis were performed. Findings: The uterus is anteverted. The endometrial stripe has a thickness of 5 mm. IUD in satisfact ory position. No focal mass is identified. The right ovary measures 2.7 x 1.2 x 3.1 cm. No significant right ovarian or adnexal mass is seen. The left ovary measures 3.2 x 1.5 x 1.9 cm. No significant left ovarian or adnexal mass is seen. Vascular flow present in both ovaries on Doppler spectral analysis. There is no evidence of free fluid in the cul de sac. Impression: IUD in place, otherwise unremarkable exam. Reviewed, dictated and finalized at [facility]. [employer] Impression: IUD in place, otherwise unremarkable exam.
== END 2022-05-12 16:31 | disposition home or self-care (01) ==
LOC: ANHIMG 16:31
PROVIDERS: PCP Family Medicine; Visit Provider Obstetrics & Gynecology
DX: N92.3 Ovulation bleeding (principal); Z97.5 Presence of (intrauterine) contraceptive device
CPT/HCPCS: 76830; 76856

== ENCOUNTER 2023-10-18 08:15 | Outpatient (CLI) | payer OTHER, SELFPAY ==
[2023-10-18 09:04] LABS: Alanine Aminotransferase 14 U/L (6-35); Albumin Level 4.5 g/dL (3.5-5.1); Alkaline Phosphatase 60 U/L (38-126); Anion Gap 9 mmol/L (4-12); Aspartate Amino Transferase 20 U/L (14-36); Bilirubin,Total 0.4 mg/dL (0.2-1.3); Blood Urea Nitrogen 12 mg/dL (7-17); Carbon Dioxide 27 mmol/L (22-30); Chloride 102 mmol/L (98-107); Cholesterol 173 mg/dL (0-200); Estimated Glomerular Filt Rate > 60; Glucose 95 mg/dL (65-110); HDL Direct 68 mg/dL; Sodium 138 mmol/L (137-145); Triglycerides 54 mg/dL (<150)
[2023-10-18 09:15] LABS: LDL Cholesterol Direct 77 mg/dL
[2023-10-18 09:54] LABS: Free T4 Free Thyroxine 0.93 ng/mL (0.78-2.19)
== END 2023-10-18 08:16 | disposition home or self-care (01) ==
PROVIDERS: PCP Family Medicine; Visit Provider Student in an Organized Health Care Education/Training Program
DX: Z00.00 Encounter for general adult medical examination without abnormal findings (principal); F32.A Depression, unspecified; R53.83 Other fatigue
CPT/HCPCS: 36415; 80053; 80061; 84439; 84443

== ENCOUNTER 2024-09-28 08:10 | Emergency (ER) | payer OTHER, SELFPAY ==
--- OUTSIDE RECORDS SUMMARY | 2024-09-28 08:11 | XMS_ITS | Referral Summary ---
Author Organization [facility] [address] Address [address] [place] [address] Phone Care Team Providers Care Financial Aid Coordinator Name Role Phone No, Physician Primary Care Provider [phone] Allergies No known active allergies Medications omeprazole (PriLOSEC) 10 mg capsule Take 10 mg by mouth daily. 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 Gender Identity Not on file Sexual Orientation Not on file Occupation Industry Job Start Date Job End Date RN Not on file Not on file Not on file Last Filed Vital Signs Vital Sign Reading Time Taken Comments Blood Pressure 110/80 06/28/2017 8:40 AM CDT Pulse - - Temperature - - Respiratory Rate - - Oxygen Saturation - - Inhaled Oxygen Concentration - - Weight 59.4 kg (131 lb) 06/28/2017 8:40 AM CDT Height 160 cm (5' 3) 06/28/2017 8:40 AM CDT Body Mass Index 23.21 06/28/2017 8:40 AM CDT Plan of Treatment Not on file [place] [address] [place] [address] [place] [address] [place] [address] Care Teams Financial Aid Coordinator Relationship Specialty Start Date End Date No, Physician PCP - General 06/28/17
--- OUTSIDE RECORDS SUMMARY | 2024-09-28 08:12 | XMS_ITS | Clinical Summary ---
Author Organization [facility] [address] Address [address] [place] [address] Phone Care Team Providers Care Rubber Stamps And Dies Supervisor Name Role Phone No, Physician Primary Care Provider [phone] Allergies No known active allergies Medications omeprazole (PriLOSEC) 10 mg capsule Take 10 mg by mouth daily. Active Active Problems No known active problems Immunizations Immunization Administration Dates Next Due HPV, Quadrivalent 01/22/2009,09/23/2008,07/11/19 09 Influenza, Split 07/28/2011 Tdap 01/06/2010 Family History Medical History Relation Name Comments Hypertension Father 2 Hypertension; Relation Name Status Comments Father 1 Alive Father 2 Social History Tobacco Use Types Packs/Day Years Used Date Smoking Tobacco: Never Smokeless Tobacco: Never Alcohol Use Standard Drinks/Week Comments Yes 1 (1 standard drink = 0.6 oz pur e alcohol) occasional Comments No Sex and Gender Information Value Date Recorded Sex Assigned at Not on file 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
--- OUTSIDE RECORDS SUMMARY | 2024-09-28 08:12 | XMS_ITS | Clinical Summary ---
Author Organization [facility] Address [address] [place] [address] Care Team Providers Care Sheet Metal Worker Helper Name Role Phone Unavailable Primary Care Provider Unavailabl e Source Comments [facility],non-owned Affiliates and Associated Physician Practices is amultiple site organization consisting of ambulatory clinics and hospital sitesin [place], [place], [place] and [place]. This disclosure is being madepursuant to the Care Everywhere program and may not contain all information available regarding this patient. Last updated 17.[facility] Allergies No known active allergies Active Problems Problem Noted Date Diagnosed Date arrhythmia affecting , antepartum 04/22/2021 Resolved Problems Problem Noted Date Diagnosed Date Resolved Date SGA (small for gestational a ge), , affecting care of mother, antepartum, second trimester, other fetus 02/24/2021 04/22/2021 Overview (02/24/2021): Dating: LMP 07/01/2021 = AMANDA 07/01/21 lab summary: O-, Ab: Neg, Rub: Immune, Rpr-NR, Hbsag-NR, HIV-NR H/h/p: 13.4 / 39.3 / 265 CF screen-Negative No aneuploidy screening done. 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 Gender Identity Not on file Sexual Orientation Not on file Plan of Treatment Health Maintenance Due Date Last Done Comments HIV SCREENING 2009 HEPATITIS C SCREENING 07/04/2012 DTAP/TDAP/TD VACCINES (1 - Tdap) 2013 HEPATITIS B VACCINE (1 of 3 - 19+ 3-dose series) 2013 PAP SMEAR 07/10/2015 HPV VACCINE (1 - 3-dose SCDM series) 2021 COVID-19 VACCINE (3 - 2023-2 5 season) 2023 03/14/2020, 02/22/2020 DEPRESSION SCREENING 03/07/2024 INFLUENZA VACCINE (#1) 2024 07/28/2011 ZOSTER VACCINE (1 of 2) 2044 HIB VACCINE Aged Out No longer eligi ble based on patient's age to complete this topic MENINGOCOCCAL (Group B) VACCINE SHARED DECISION-MAKING Aged Out No longer eligible based on patient's age to complete this topic MENINGOCOCCAL GROUPS A/C/Y/W VACCINE Aged Out No longer eligible b ased on patient's age to complete this topic PNEUMOCOCCAL VACCINE Aged Out No long er eligible based on patient's age to complete this topic Insurance [address]
[2024-09-28 08:19] VITALS: BP 127/86; PULSE 81; RESP 16; TEMP 36.6; O2SAT 100
--- NOTE | 2024-09-28 08:21 | ED_ITS ---
HPI - General Adult General Chief complaint: Eye Problems Stated complaint: Eye Problem Time Seen by Provider: 09/28/24 08:22 Source: patient Mode of arrival: ambulatory Limitations: no limitations History of Present Illness HPI narrative: 29-year-old female presents with complaint of left eye redness, Yellow drainage this morning. denies left eye pain. No injury. Patient concerned for pinkeye. No vision changes, does not were contacts. All systems reviewed and negative except as noted above. Related Data Allergies Allergy/AdvReac Type Severity Reaction Status Date / Time No Known Allergies Allergy Verified 09/28/24 08:21 Review of Systems Review of Systems: CONSTITUTIONAL: Denies fever, chills, or sweats. EYES: Denies visual changes . Reports left eye redness and discharge. ENT: Denies rhinorrhea, congestion, sore throat, or otalgia. CARDIOVASCULAR: Denies chest pain, palpitations, or edema. RESPIRATORY: Denies cough or dyspnea. GASTROINTESTINAL: Denies abdominal pain, nausea, vomiting, or diarrhea. GENITOURINARY: Denies dysuria or hematuria. SKIN: Denies rash or itching. MUSCULOSKELETAL: Denies back pain, joint pain, or myalgia. NEUROLOGIC: Denies headache, numbness, or weakness. PSYCHIATRIC: Denies anxiety or depression. All other systems reviewed are negative, except as documented in HPI. [facility] Past Medical History Medical History Vaginal delivery Acid reflux Family History Family History Father Family history of elevated blood lipids Hypertension Mother Depression Hypertension Social History Social History Smoking status: Never smoker Second hand tobacco smoke exposure: No Alcohol intake: never Substance use: never Lack of Transportation: No Lack of Food: Never True Current Housing: I Have Housing Concerned About Future Housing: No Difficulty Paying Gas/Electric Bills: No Difficulty Paying for Meds: No Currently Unemployed: No Education: Bachelor's Degree Difficulty w/ Childcare or Family Care: No Spiritual care concerns: No Comments At time of signature, agree with nursing past medical, surgical, social and family history. There is no relevant family history pertinent to the presenting complaint. Exam Narrative: GENERAL: This is a well-nourished, well-developed patient, in no apparent distress. HEAD: normocephalic, atraumatic. EYES: PERRL. sclera and conjunctiva of left eye erythematous and injected with yellow drainage. Right eye normal. Vision is grossly intact. EARS: External ears normal NOSE: External nose normal SKIN: warm, Dry, intact with no suspicious lesions or rash, good texture and turgor. NEURO: awake, alert, and oriented to person, place and time. There were no obvious focal neurologic abnormalities. EXTREMITIES: No joint tenderness, effusion, or edema noted. BACK: Nontender without deformity. Course Course Level of Care: Express Care Visit Vital Signs Vital signs: reviewed Medical Decision Making MDM Narrative Medical decision making narrative: will treat left bacterial conjunctivitis with abx drop. pt agrees with plan of care. Discharge Plan Discharge Clinical Impression: Acute bacterial conjunctivitis of left eye Patient Disposition: Home Condition: Stable Instructions: Antibiotic Form, Conjunctivitis (ED) Additional Instructions: place antibiotic eyedrops as prescribed. Wash hands before and after placing eyedrops. Follow-up with your primary care physician if symptoms are not improving. Patient Language: Nicaraguan Prescriptions: New polymyxin B sulf-trimethoprim 10,000 unit- 1 mg/mL drops 1 drp LEFT EYE Q3H 7 Days Qty: 10 0RF Rx Instructions: while awake; do not exceed 6 doses in 24 hours Follow-up/Referrals: Peg Cisneros MD [Primary Care Provider] - Stand Alone Forms: Work/School Release IP Time of Disposition: 08:27
== END 2024-09-28 08:31 | disposition home or self-care (01) ==
PROVIDERS: Emergency Provider Nurse Practitioner Family; PCP Family Medicine
DX: H10.32 Unspecified acute conjunctivitis, left eye (principal); K21.9 Gastro-esophageal reflux disease without esophagitis
CPT/HCPCS: 99213; G0463